=== PATIENT | male | born 1970 | race Caucasian/White ===

== ENCOUNTER 2019-03-27 19:26 | Emergency (ER) | payer MEDICARE, OTHER ==
[~2019-03-27] VITALS: Ht 182.9 cm; Wt 90.7 kg
[2019-03-27 19:32] VITALS: BP 175/68
--- NOTE | 2019-03-27 19:57 | PHYS DOC ---
Past Medical History Past Medical History: CVA, Hypertension, Other Additional Past Medical Histor: APHASIA,RESP FAILURE W/HYPOXIA,HEMIPLEGIA/HEMIPARESIS,PE Past Surgical History: Other Additional Past Surgical Histo: GITUBE PLACEMENT/UNKNOWN Alcohol Use: None Drug Use: None Adult General Chief Complaint Chief Complaint: GI PROBLEM HPI HPI Patient is a 48 year old [f__sex] who presents with [] Review of Systems Review of Systems Constitutional: Denies fever or chills [] Eyes: Denies change in visual acuity, redness, or eye pain [] HENT: Denies nasal congestion or sore throat [] Respiratory: Denies cough or shortness of breath [] Cardiovascular: No additional information not addressed in HPI [] GI: Denies abdominal pain, nausea, vomiting, bloody stools or diarrhea [] : Denies dysuria or hematuria [] Musculoskeletal: Denies back pain or joint pain [] Integument: Denies rash or skin lesions [] Neurologic: Denies headache, focal weakness or sensory changes [] Endocrine: Denies polyuria or polydipsia [] All other systems were reviewed and found to be within normal limits, except as documented in this note. Allergies Allergies Allergies Coded Allergies Type Severity Reaction Last Updated Verified No Known Drug Allergies 03/27/19 No Physical Exam Physical Exam Constitutional: Well developed, well nourished, no acute distress, non-toxic appearance. [] HENT: Normocephalic, atraumatic, bilateral external ears normal, oropharynx moist, no oral exudates, nose normal. [] Eyes: PERRLA, EOMI, conjunctiva normal, no discharge. [] Neck: Normal range of motion, no tenderness, supple, no stridor. [] Cardiovascular:Heart rate regular rhythm, no murmur [] Lungs & Thorax: Bilateral breath sounds clear to auscultation [] Abdomen: Bowel sounds normal, soft, no tenderness, no masses, no pulsatile masses. [] Skin: Warm, dry, no erythema, no rash. [] Back: No tenderness, no CVA tenderness. [] Extremities: No tenderness, no cyanosis, no clubbing, ROM intact, no edema. [] Neurologic: Alert and oriented X 3, normal motor function, normal sensory function, no focal deficits noted. [] Psychologic: Affect normal, judgement normal, mood normal. [] Current Patient Data Vital Signs Vital Signs Date Time Temp Pulse Resp B/P (MAP) Pulse Ox O2 Delivery O2 Flow Rate FiO2 03/27/19 19:26 99.0 106 20 175/68 (103) 95 Room Air 99.0 EKG EKG [] Radiology/Procedures Radiology/Procedures [] Course & Med Decision Making Course & Med Decision Making Pertinent Labs and Imaging studies reviewed. (See chart for details) [] Dragon Disclaimer Dragon Disclaimer This electronic medical record was generated, in whole or in part, using a voice recognition dictation system. Departure Departure Impression: Primary Impression: PEG tube malfunction Additional Impression: Contact dermatitis Disposition: HOME, SELF-CARE (back to [facility]) Condition: IMPROVED Referrals: SHERINE LORA MD Patient Instructions: Contact Dermatitis, [id number], PEG, Home Care, [id number] Additional Instructions: Rash appears more consistent with irritation for gastric juices leaking on skin from malfunction of PEG tube. Keep area dry and clean. Problem Qualifiers Additional Impression: Contact dermatitis Contact dermatitis type: irritant Contact dermatitis trigger: other trigger Qualified Codes: L24.89 - Irritant contact dermatitis due to other agents ANGI BORGES DO March 27, 2019 19:57
== END 2019-03-27 21:06 | disposition home or self-care (01) ==
LOC: ER 19:26
DX: K94.23 Gastrostomy malfunction (principal); L24.89 Irritant contact dermatitis due to other agents; I10 Essential (primary) hypertension; Z86.73 Personal history of transient ischemic attack (TIA), and cerebral infarction without residual deficits; Y83.8 Other surgical procedures as the cause of abnormal reaction of the patient, or of later complication, without mention of misadventure at the time of the procedure; Y92.89 Other specified places as the place of occurrence of the external cause
CPT/HCPCS: 43762; 99284-25